=== PATIENT | female | born 1970 | race Hispanic/Latino ===

== ENCOUNTER 2018-07-01 08:14 | Emergency (ER) | payer OTHER ==
[~2018-07-01 08:14] MED LIST: AMLO5TAB4 PO; ASPI-1005 PO; ATOR40TA69 PO; FERR324T10 PO; METO25 PO
[2018-07-01] MEDS ORDERED: DEXAMETHASONE SOD PHOSPHATE 10MG/ML 1ML VIAL ONE (08:48)
[2018-07-01] MEDS ORDERED: CEFTRIAXONE SODIUM 1 GM ONE (08:48)
[2018-07-01] MEDS ORDERED: LIDOCAINE HCL-MPF 1% 2ML VIAL ONE (08:49)
== END 2018-07-01 09:45 | disposition home or self-care (01) ==
LOC: EDH 08:14
DX: J02.9 Acute pharyngitis, unspecified (principal); I10 Essential (primary) hypertension; E78.5 Hyperlipidemia, unspecified
CPT/HCPCS: 87804 ×2; 96372 ×2; 99283; J0696; J1100; J3490